=== PATIENT | male | born 1990 | race Caucasian/White ===

== ENCOUNTER 2022-05-21 21:44 | Emergency (ER) | payer BC ==
[~2022-05-21] VITALS: Ht 190.5 cm; Wt 104.5 kg
[2022-05-21] MEDS ORDERED: NAPROXEN500 MG PO (22:39)
[2022-05-21] MEDS ORDERED: AMOX/K CLAV875 M1 PO (22:39)
[2022-05-21 22:50] VITALS: BP 128/84
== END 2022-05-21 23:04 | disposition home or self-care (01) | DRG 605 ==
LOC: ED 21:44
PROC: 0HQFXZZ Repair Right Hand Skin, External Approach (ICD-10-PCS; principal; 2022-05-21)
DX: S61.252A Open bite of right middle finger without damage to nail, initial encounter (principal); W54.0XXA Bitten by dog, initial encounter